=== PATIENT | male | born 2000 | race Caucasian/White ===

== ENCOUNTER 2023-11-18 10:16 | Emergency (ER) | payer OTHER ==
[~2023-11-18] VITALS: Ht 167.6 cm; Wt 58.0 kg
[2023-11-18 10:29] VITALS: BP 133/84
[2023-11-18 10:30] VITALS: BP 127/77
[2023-11-18 11:00] VITALS: BP 115/71
[2023-11-18] MEDS ORDERED: ZPAK PO (11:26)
[2023-11-18] MEDS ORDERED: DEXAMETHASONE 2 MG/TAB TAB PO ONE (11:30)
[2023-11-18 11:52] VITALS: BP 115/71
== END 2023-11-18 11:53 | disposition home or self-care (01) | DRG 153 ==
LOC: ED 10:16
DX: J06.9 Acute upper respiratory infection, unspecified (principal); Z20.822 Contact with and (suspected) exposure to COVID-19

== ENCOUNTER 2023-11-28 12:47 | Emergency (ER) | payer OTHER ==
[2023-11-28] VITALS (7 sets, daily range): BP systolic 118–129; BP diastolic 65–83
[~2023-11-28] VITALS: Ht 167.6 cm; Wt 81.6 kg
[~2023-11-28 12:47] MED LIST: ZPAK PO
[2023-11-28] MEDS ORDERED: ALLERGY RE50 MCG/ACT (14:24)
[2023-11-28] MEDS ORDERED: LEVOCETIRIZINE D5 MG PO (14:24)
[2023-11-28] MEDS ORDERED: VIBRAMYCIN100 M2 PO (14:24)
== END 2023-11-28 14:43 | disposition home or self-care (01) | DRG 179 ==
LOC: ED 12:47
DX: U07.1 COVID-19 (principal); J32.9 Chronic sinusitis, unspecified; F17.290 Nicotine dependence, other tobacco product, uncomplicated